=== PATIENT | female | born 1965 | race Caucasian/White ===

== ENCOUNTER → 2018-04-26 | Outpatient (CLI) | payer OTHER | LOC: LAB SHORT 08:05 → PLD 08:05 | DX: L57.0 Actinic keratosis (principal) | CPT/HCPCS: 88304 ==

== ENCOUNTER → 2019-04-28 | Outpatient (CLI) | payer OTHER ==
[~2019-04-28] MED LIST: ACET325 PO; CONEST.625 PO; GLUCOSAMINE CH1 EAC3 PO; IBUPROFEN200 MG PO
[2019-05-01 15:06] LABS: HPV 16 Negative (Negative); HPV 18 Negative (Negative); HPV OTHER HR TYPES Negative (Negative)
== END | disposition home or self-care (01) ==
LOC: LAB 11:14 → LAB SHORT 11:14
PROVIDERS: Obstetrics & Gynecology Gynecology
DX: Z12.72 Encounter for screening for malignant neoplasm of vagina (principal)
CPT/HCPCS: 87624; G0123

== ENCOUNTER 2019-07-20 10:59 | Day surgery (SDC) | payer OTHER ==
[~2019-07-20] VITALS: Ht 162.6 cm; Wt 75.8 kg
[2019-07-20] MEDS ORDERED: CONEST.625 PO (11:58)
[2019-07-20] MEDS ORDERED: IBUPROFEN200 MG PO (11:58)
[2019-07-20] MEDS ORDERED: GLUCOSAMINE CH1 EAC3 PO (11:59)
[2019-07-20] MEDS ORDERED: ACET325 PO (11:59)
--- NOTE | 2019-07-20 14:27 | NUR ---
07/20/19 1427 Swati Lopez PATIENT C/O PAIN RATES AT 06/20. CRYING. DR. BELLO AWARE, NEW ORDERS FOR 100MCG FENTANYL IV. POLAR LUIS ALBERTO IN PLACE. FAMILY AT SIDE.
== END 2019-07-20 17:05 | disposition home or self-care (01) ==
LOC: ORSCSDS 10:59
PROVIDERS: Orthopaedic Surgery
PROC: 0SQD4ZZ Repair Left Knee Joint, Percutaneous Endoscopic Approach (ICD-10-PCS; principal; 2019-07-20 12:15)
DX: S83.242A Other tear of medial meniscus, current injury, left knee, initial encounter (principal); M25.861 Other specified joint disorders, right knee; M94.262 Chondromalacia, left knee
CPT/HCPCS: C1713; J0171; J0690; J1100; J1885; J2250; J2405; J2704; J2795; J3010; J7120